=== PATIENT | female | born 1965 | race Caucasian/White ===

== ENCOUNTER 2017-03-02 15:34 | Emergency (ER) | payer OTHER ==
[~2017-03-02] VITALS: Ht 165.1 cm; Wt 70.3 kg
== END 2017-03-02 16:30 | disposition home or self-care (01) ==
LOC: CED 15:34 → CFTX 15:34
DX: S61.451A Open bite of right hand, initial encounter (principal); S60.414A Abrasion of right ring finger, initial encounter; I10 Essential (primary) hypertension; F41.9 Anxiety disorder, unspecified; Z88.5 Allergy status to narcotic agent; Z88.8 Allergy status to other drugs, medicaments and biological substances; W54.0XXA Bitten by dog, initial encounter; Y92.69 Other specified industrial and construction area as the place of occurrence of the external cause; Y93.89 Activity, other specified; Y99.0 Civilian activity done for income or pay
CPT/HCPCS: 29280; 90471; 90715; 99283